=== PATIENT | female | born 1970 | race Two or more races ===

== ENCOUNTER 2025-06-23 23:07 | Emergency (ER) | payer BC, OTHER ==
[~2025-06-23] VITALS: Ht 160 cm; Wt 81.1 kg
[2025-06-23] MEDS ORDERED: fentaNYL Drip 2500mCg/250mlNS 250 ML IV ONE (23:19)
[2025-06-23] MEDS ORDERED: MIDAZOLAM DRIP 50 mg/50mL 50 ML IV ONE (23:35)
--- NOTE | 2025-06-23 23:47 | ED.PDOC ---
History of Present Illness HPI Comments 55-year-old female who came to ER due to dizziness. Patient has a history of hypertension. 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 She got concerned so she called off work. Patient also complaining of nasal congestion and ear pain. She denies any chest pains REVIEW OF SYSTEMS: No fever, no chills, or fatigue HEENT: No sore throat, no earache, no congestion, no neck pain. Cardiac: No chest pain. No palpitations. Lungs: No shortness of breath, no cough. GI: No nausea, no vomiting, no diarrhea, no constipation, no abdominal pain : No dysuria, frequency, or urgency. No hematuria. Musculoskeletal: No joint pain , no joint swelling, no extremity edema. Skin: No rash, no itching. Neuro: No headache, (+) dizziness, no weakness Physical exam General: Awake, alert and oriented. No acute distress. Skin: Skin in warm, dry and intact. Appropriate color for ethnicity. Nailbeds pink with no cyanosis. HEENT: The head is normocephalic and atraumatic. Conjunctivae are clear without exudates or hemorrhage. Sclera is non-icteric. EOM are intact. No signs of nystagmus. Eyelids are normal in appearance without swelling or lesions. Oral mucosa is pink and moist Neck: The neck is supple with normal range of motion. No JVD. Cardiac: Heart rate and rhythm are normal. No murmurs, gallops, or rubs are auscultated. Respiratory: No signs of respiratory distress. Lung sounds are clear in all lobes bilaterally without rales, rhonchi, or wheezes. Abdominal: Abdomen is soft, non-tender without distention. Bowel sounds are present and normoactive in all four quadrants. Extremities: Upper and lower extremities are atraumatic in appearance without deformity or edema. Neurological: The patient is awake, alert and oriented to person, place, and t grady with normal speech. Speech is clear. There is no facial asymmetry. Psychiatric: Appropriate mood and affect. Good judgement and insight. No visual or auditory hallucinations. Chief Complaint: Dizziness Time Seen by MD: 23:47 Reviewed Notes: Nurses Notes Information Source: Patient Mode of Arrival: Ambulatory Severity: Moderate Timing: Hours Duration: Intermittent Past Medical History PAST MEDICAL HISTORY: Anxiety, Depression, HTN Surgical History: Denies all surgeries INFORMATICS DEVELOPER History: Denies all INFORMATICS DEVELOPER Hx Family History Family History: Reviewed,noncontributory to illness Social History Smoker: Non-Smoker Alcohol: Denies ETOH Use Drugs: Denies Drug Use Lives In: Home Was a procedure done? Was a procedure done?: No EKG EKG : Pulse Rate (adult): 66 Cardiac Rhythm: NSR Hypertrophy: LAE Comments No STEMI Differential Dx Considerations may include: Differential diagnoses considered include but are not limited to cardiac structural disease, arrhythmia, acute coronary syndrome, orthostasis, pulmonary embolism, dissection, seizure, basilar stroke, other. X-Ray, Labs, Meds, VS Vital Signs Date Time Temp Pulse Resp B/P (MAP) Pulse Ox O2 Delivery O2 Flow Rate FiO2 06/24/25 02:20 98.2 69 16 160/94 (116) 97 98.2 06/24/25 01:54 66 06/24/25 01:50 66 06/23/25 23:11 97.6 76 18 163/92 98 97.6 Lab Test 06/23/25 23:52 Range/Units White Blood Count 8.3 4.4-10.8 10^3/uL Red Blood Count 4.88 4.0-5.20 10^6/uL Hemoglobin 14.1 12.2-16.2 g/dL Hematocrit 41.3 36.0-46.0 % Mean Corpuscular Volume 84.6 80.0-100.0 fL Mean Corpuscular Hemoglobin 29.0 28.0-32.0 pg Mean Corpuscular Hemoglobin Concent 34.2 32.0-36.0 g/dL Red Cell Distribution Width 13.8 11.8-14.3 % Platelet Count 277 140-450 10^3/uL Mean Platelet Volume 6.9 6.9-10.8 fL Neutrophils (%) (Auto) 60.7 37.0-80.0 % Lymphocytes (%) (Auto) 30.6 10.0-50.0 % Monocytes (%) (Auto) 5.9 0.0-12.0 % Eosinophils (%) (Auto) 2.0 0.0-7.0 % Basophils (%) (Auto) 0.8 0.0-2.0 % Neutrophils # (Auto) 5.0 1.6-8.6 10 ^3/uL Lymphocytes # (Auto) 2.5 0.4-5.4 10 ^3/uL Monocytes # (Auto) 0.5 0-1.3 10 ^3/uL Eosinophils # (Auto) 0.2 0-0.8 10 ^3/uL Basophils # (Auto) 0.1 0-0.2 10 ^3/uL Nucleated Red Blood Cells 0.1 % Sodium Level 140 136-145 mmol/L Potassium Level 3.7 3.5-5.1 mmol/L Chloride Level 107 98-107 mmol/L Carbon Dioxide Level 22 20-31 mmol/L Anion Gap 11 5-15 Blood Urea Nitrogen 15 9-23 mg/dL Creatinine 0.87 0.550-1.02 mg/dL Glomerular Filtration Rate Calc 79 >90 mL/min BUN/Creatinine Ratio 17.2 10.0-20.0 Serum Glucose 104 74-106 mg/dL Calcium Level 9.2 8.7-10.4 mg/dL Troponin I High Sensitivity < 3 L </=34 ng/L B-Type Natriuretic Peptide 5.01 0-100 pg/mL Time of 1ST Reevaluation: 23:44 Reevaluation 1ST: Unchanged Patient Education/Counseling: Need For Follow Up Family Education/Counseling: No Family Present SEPSIS Sepsis Screen Date sepsis recognized/suspect: Jun 23, 2025 Time Sepsis recognized/suspect: 2313 Recent Procedure: No On Antibiotic Therapy: No Respiratory Rate >20: No Heart Rate >90: No Temp<36 C (96.8 F) or >38.3 C: No SBP <90 or MAP <65 mmHG: No New Acute Mental Status Change: No Is the patient on CPAP, BIPAP,: No Physician Orders Electrocardigram (06/23/25 23:42) Chest Xray 1 View (06/23/25 23:42) Vital Signs Q1HR (06/23/25 23:42) Vital Signs Date Time Temp Pulse Resp B/P (MAP) Pulse Ox O2 Delivery O2 Flow Rate FiO2 06/24/25 02:20 98.2 69 16 160/94 (116) 97 98.2 06/24/25 01:54 66 06/24/25 01:50 66 06/23/25 23:11 97.6 76 18 163/92 98 97.6 Laboratory Tests Test 06/23/25 23:52 White Blood Count 8.3 10^3/uL (4.4-10.8) Departure 1 Departure Time of Disposition: :25 Impression: Primary Impression: Dizziness Disposition: HOME / SELF CARE / HOMELESS Condition: Stable Comments MDM: 55-year-old female with dizziness EKG negative for signs of ischemia or arrhythmia. High sensitivity troponin negative. CXR shows no acute process. Presentation not suggestive of cardiac arrhythmia, acute coronary syndrome, pulmonary embolism or aortic dissection. Patient improved at time of discharge. Patient has not been hypoxic, in respiratory distress or dyspneic during the ED observation. Patient able to ambulate without difficulty. Patient felt stable for discharge to follow up with PCP promptly. Patient advised to return to the ED with any new, worsening or concerning symptoms or inability to follow up with PCP. - I reviewed the following notes from the pt's past medical encounters: N/A The following tests were ordered, and results were reviewed by me: (See diagnostic results section) The following test were independently interpreted by me: EKG Additional information was gathered from interviewing the following independent historians: N/A I reviewed and agreed with the following test results read by other providers: Chest x-ray I discussed treatments and results with patient Decision regarding hospitalization or escalation of hospital level of care: Risks and benefits of admission for further treatment of patient's condition was considered however due to patient's stable condition patient will be discharged to follow up closely or return to care for worsening of condition or inability to follow up. Critical Care Note Critical Care Time?: No Stability Stability form required: No Heart Score Heart Score: Heart Score Response (Comments) Value History N/A 0 EKG N/A 0 Age N/A 0 Risk Factors N/A 0 Troponin N/A 0 Total 0 I personally scribed for CHERI SANCHEZ MD ([email or web address]) on 06/23/25 at 23:47. Electronically submitted by Manuel Benson ([facility]). I personally scribed for CHERI SANCHEZ MD ([email or web address]) on 06/24/25 at 01:27. Electronically submitted by Manuel Benson ([facility]). I personally scribed for CHERI SANCHEZ MD ([email or web address]) on 06/24/25 at 01:54. Electronically submitted by Manuel Benson ([facility]). CHERI SANCHEZ MD Jun 23, 2025 23:47
[2025-06-24 00:10] LABS: Potassium 3.7 mmol/L (3.5-5.1); Sodium 140 mmol/L (136-145)
[2025-06-24 00:11] LABS: Anion Gap 11 (5-15); Carbon Dioxide 22 mmol/L (20-31); Chloride 107 mmol/L (98-107)
[2025-06-24 00:12] LABS: Calcium 9.2 mg/dL (8.7-10.4)
--- NOTE | 2025-06-24 00:14 | DVH ---
CHEST RADIOGRAPH Indication: cp Technique: Single frontal view of the chest was obtained Comparison: None FINDINGS: Lines and Tubes: None Lungs: No focal consolidation. Pleura: No effusion. No pneumothorax. Cardiomediastinal contours: Unremarkable Bones: No acute osseous abnormality. IMPRESSION: 1. No acute cardiopulmonary disease.
[2025-06-24 00:16] LABS: BUN/Creatinine Ratio 17.2 (10.0-20.0); Blood Urea Nitrogen 15 mg/dL (9-23); Glucose 104 mg/dL (74-106)
[2025-06-24 00:18] LABS: Hematocrit 41.3 % (36.0-46.0); Hemoglobin 14.1 g/dL (12.2-16.2); Mean Corpuscular Hemoglobin 29.0 pg (28.0-32.0); Mean Corpuscular Volume 84.6 fL (80.0-100.0); Nucleated Red Blood Cells % 0.1 %
[2025-06-24 02:20] VITALS: BP 160/94; TEMP 98.2
[2025-06-24] MEDS: KETOROLAC TROMETH 30 MG/ML 1ML VIAL IM ONE (03:00)
[2025-06-24 03:27] VITALS: PULSE 69; RESP 16; O2SAT 97
--- NOTE | 2025-06-24 11:50 | ECG ---
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
== END 2025-06-24 03:36 | disposition home or self-care (01) ==
LOC: ER 23:07
DX: R42 Dizziness and giddiness (principal); R09.81 Nasal congestion; H92.09 Otalgia, unspecified ear; I10 Essential (primary) hypertension; F41.9 Anxiety disorder, unspecified; F32.A Depression, unspecified
CPT/HCPCS: 36415; 71045; 80048; 83880; 84484; 85025; 93005; 96372; 99285; J1885